=== PATIENT | male | born 1995 | race Caucasian/White ===

== ENCOUNTER 2021-01-08 10:12 | Emergency (ER) | payer OTHER ==
[~2021-01-08] VITALS: Ht 172.7 cm; Wt 70.4 kg
[2021-01-08] MEDS ORDERED: FLUORESCEIN OPHTH 1 MG STRIP XX ONE (10:45)
[2021-01-08] MEDS ORDERED: TETRACAINE 0.5% OPHTH SOLN 4ML XX ONE (10:45)
[2021-01-08] MEDS ORDERED: ERYTHROMYCIN OPHTH OINT OD ONE (11:35)
[2021-01-08] MEDS ORDERED: ERYT5OIN25 OD (11:37)
[2021-01-08 12:29] VITALS: BP 136/69
== END 2021-01-08 12:20 | disposition home or self-care (01) ==
LOC: M ED 10:12
DX: T15.01XA Foreign body in cornea, right eye, initial encounter (principal); X58.XXXA Exposure to other specified factors, initial encounter; Y92.79 Other farm location as the place of occurrence of the external cause; Y93.9 Activity, unspecified; Y99.0 Civilian activity done for income or pay; Z91.040 Latex allergy status